=== PATIENT | female | born 1965 | race African-American/Black ===

== ENCOUNTER 2017-02-14 00:30 | Emergency (ER) | payer BC ==
--- NOTE | 2017-02-14 08:22 | RAD ---
RIGHT KNEE 4 VIEWS: HISTORY: Fall, pain. FINDINGS/IMPRESSION: Comparison is made with the exam of 05/23/13. Degenerative changes are again seen. No fracture or dislocation is identified. POS: DOMINIQUE
--- NOTE | 2017-02-14 08:33 | RAD ---
LEFT KNEE 4 VIEWS: Date: 02/14/17 HISTORY: 51-year-old female with left knee pain following an injury from a fall. FINDINGS: Severe tricompartmental arthrosis changes are noted with joint space loss, sclerosis, and eburnation , extensive disc osteophytosis. Evidence for some suprapatellar joint fluid. IMPRESSION: Severe tricompartment degenerative and osteoarthrosis. No acute fracture or dislocation. Evidence fo r suprapatellar recess fluid. POS: OFF
== END 2017-02-14 01:37 | disposition home or self-care (01) ==
LOC: NAV ERS 00:30
DX: S80.02XA Contusion of left knee, initial encounter (principal); S80.01XA Contusion of right knee, initial encounter; E03.9 Hypothyroidism, unspecified; I10 Essential (primary) hypertension; Z79.899 Other long term (current) drug therapy; W01.0XXA Fall on same level from slipping, tripping and stumbling without subsequent striking against object, initial encounter

== ENCOUNTER 2017-08-12 07:36 | Emergency (ER) | payer BC, SELFPAY ==
[2017-08-12] MEDS ORDERED: Fluorescein Opthalmic Strip ONE (07:53)
== END 2017-08-12 08:11 | disposition home or self-care (01) ==
LOC: NAV ERS 07:36
DX: H11.31 Conjunctival hemorrhage, right eye (principal); I10 Essential (primary) hypertension; E03.9 Hypothyroidism, unspecified; Z85.3 Personal history of malignant neoplasm of breast; Z79.899 Other long term (current) drug therapy
CPT/HCPCS: 99282

== ENCOUNTER 2020-10-20 09:45 | Outpatient (CLI) | payer OTHER | END 2020-10-20 09:46 | disposition home or self-care (01) | LOC: NAV RAD 09:45 | PROVIDERS: ATTEND Nurse Practitioner Family | DX: M25.561 Pain in right knee (principal); M25.461 Effusion, right knee; M17.11 Unilateral primary osteoarthritis, right knee ==

== ENCOUNTER 2024-05-26 18:23 | Emergency (ER) | payer BC, SELFPAY | END 2024-05-26 19:22 | disposition home or self-care (01) | LOC: NAV ERS 18:23 | DX: J02.9 Acute pharyngitis, unspecified (principal); J06.9 Acute upper respiratory infection, unspecified; I10 Essential (primary) hypertension; E03.9 Hypothyroidism, unspecified; Z79.899 Other long term (current) drug therapy | CPT/HCPCS: 87081; 87430; 99283 ==

== ENCOUNTER 2024-06-04 12:11 | Emergency (ER) | payer SELFPAY ==
[2024-06-04 12:50] LABS: #Basophils 0.1 thou/uL (0.0-0.2); #Eosinophils 0.1 thou/uL (0.0-0.7); #Lymphocytes 2.1 thou/uL (1.20-3.40); #Monocytes 0.5 thou/uL (0.11-0.59); #Neutrophils 4.5 thou/uL (1.40-6.50); %Basophils 0.9 % (0.0-1.0); %Eosinophils 0.7 % (0.0-10.0); %Lymphocytes 29.3 % (21.0-51.0); %Monocytes 7.2 % (0.0-10.0); %Neutrophils 61.9 % (42.0-75.0); Hematocrit 44.5 % (36.0-47.0); Hemoglobin 14.1 g/dL (12.0-16.0); Mean Corpuscular HGB CONC 31.6 g/dL (32.0-36.0); Mean Corpuscular Volume 91.8 fl (78.0-98.0); Mean Platelet Volume 7.4 fL (7.4-10.4); Platelet Count 303 10x3/uL (130-400); RBC Distribution Width 11.5 % (11.5-14.5); Red Blood Cell (RBC) Count 4.85 mill/uL (4.20-5.40); White Blood Cell (WBC) Count 7.3 10x3/uL (4.8-10.8)
[2024-06-04] MEDS ORDERED: Labetalol HCl 100 MG/20 ML VIAL ONE (12:55)
[2024-06-04 13:07] LABS: ALT (SGPT) 19 U/L (8-55); AST (SGOT) 23 U/L (5-34); Albumin 4.2 g/dL (3.5-5.0); Alkaline Phosphatase 117 U/L (40-110); Anion Gap 14 mmol/L (10-20); BUN (Urea Nitrogen) 14 mg/dL (9.8-20.1); Bilirubin, Total 0.4 mg/dL (0.2-1.2); Calc. Creatinine Clearance 0 mL/min (70-130); Carbon Dioxide 28 mmol/L (22-29); Chloride 100 mmol/L (98-107); Estimated GFR 73; Globulin 4.1 g/dL (2.4-3.5); Glucose 108 mg/dL (70-105); Magnesium 1.9 mg/dL (1.6-2.6); Potassium 3.4 mmol/L (3.5-5.1); Protein, Total 8.3 g/dL (6.0-8.3); Sodium 139 mmol/L (136-145)
[2024-06-04 13:13] LABS: Troponin I Less than 0.010 ng/mL (< 0.028)
[2024-06-04] MEDS ORDERED: niCARdipine 20MG In NaCl 20 MG/200 ML BAG ONE (15:25)
[2024-06-04 22:39] LABS: Free T4 (Free Thyroxine) 1.02 ng/dL (0.70-1.48)
== END 2024-06-04 18:19 | disposition short-term general hospital (02) ==
LOC: NAV ERS 12:11
DX: I10 Essential (primary) hypertension (principal); R94.31 Abnormal electrocardiogram [ECG] [EKG]; I16.0 Hypertensive urgency; E03.9 Hypothyroidism, unspecified; Z79.899 Other long term (current) drug therapy
CPT/HCPCS: 80053; 83735; 84439; 84481; 84484; 85025; 93005; 94760; 96365; 96366; 96375; 96376